=== PATIENT | female | born 1980 | race Caucasian/White ===

== ENCOUNTER 2020-03-29 11:20 | Emergency (ER) | payer OTHER ==
[~2020-03-29] VITALS: Ht 167.6 cm; Wt 110.0 kg
--- NOTE | 2020-03-29 11:40 | PHYS DOC ---
General Adult EDM: Chief Complaint: VAGINAL BLEEDING HPI: HPI: 40 yo @ 6w5d (based on LMP 02/10) presents to the ed with c/o intermittent vaginal spotting for the past week, home test + March 14.. Reports menses type of vaginal bleeding last night with passing large blood clots and abdominal cramping more painful than her typical menses. States her blood flow has decreased and the cramping is improved. In monogamous relationship x4 years. Agrees to GC testing (states "why not?"). No history of anemia or blood transfusions. Does not take any anticoagulation. Past surgical history of lap band, cholecystectomy, L5-S1 spinal fusion and a panniculectomy in August 2019 (in [place], just moved here/hasn't established pcp care). Her children are 10, 12 and 14 yoa. Has monthly menses but hasn't been using any protection. ROS: Denies any associated syncope, dyspnea, abnormal vaginal discharge/odor/itching, dysuria, hematuria, flank pain, dyspareunia, fever or chills, nausea or vomiting. Review of Systems: Review of Systems: Constitutional: Denies fever or chills Eyes: Denies change in visual acuity HENT: Denies nasal congestion or sore throat Respiratory: Denies cough or shortness of breath Cardiovascular: Denies chest pain or edema GI: Denies abdominal pain, nausea, vomiting, bloody stools or diarrhea : Denies dysuria or hematuria Musculoskeletal: Denies back pain or joint pain Integument: Denies rash or diaphoresis Neurologic: Denies headache, focal weakness or sensory changes Endocrine: Denies polyuria or polydipsia Lymphatic: Denies swollen glands Psychiatric: Denies depression or anxiety Physical Exam: PE: Constitutional: Well developed, well nourished, no acute distress, non-toxic appearance. HENT: Normocephalic, atraumatic, Eyes: EOMI, conjunctiva normal, no discharge. Neck: Normal range of motion, supple, Cardiovascular: S1/2 present, regular rhythm Lungs & Thorax: Speaking in full sentences, bilateral equal chest rise, no tachypnea or increased work of breathing Abdomen: soft, no tenderness, Skin: Warm, dry, no erythema, no rash. [] Back: No tenderness, no CVA tenderness. [] Extremities: No tenderness, no cyanosis, no edema Neurologic: Alert and oriented X 3, normal motor function, normal sensory function, no focal deficits noted. [] Psychologic: Affect normal, judgement normal, mood normal. [] Pelvic: Chaperoned by RN, external genitalia normal, normal nonmalodorous discharge, multiparous cervical os closed, no cervical erythema, no CMT or adnexal tenderness, mild/moderate vaginal bleeding in vaginal canal, with mild/not-brisk vaginal bleeding through os with mucous, tolerated exam well EKG: EKG: [] Radiology/Procedures: Radiology/Procedures: IMAGING REPORT Signed PATIENT: MOHIT PARRA LACCOUNT: [id number] : 1980 LOCATION: ER AGE: 40 SEX: F EXAM STATUS: REG ER ORD. PHYSICIAN: MATY COLEMAN DO REASON: vb, 6w5d PROCEDURE: TRANSVAGINAL EXAM: Pelvic sonogram. HISTORY: Bleeding. TECHNIQUE: Transvaginal sonographic imaging of the pelvis was performed. COMPARISON: None. FINDINGS: The uterus measures 11.0 x 5.8 x 5.2 cm. There is a single intrauterine gestational sac with a mean sac diameter of 8.1 mm, corresponding with a gestational age of 5 weeks and 4 days. There is an enlarged yolk sac with slight irregular configuration measuring 6.4 mm. No pole is seen. The ovaries demonstrate normal size and blood flow. There is a 1.2 cm right corpus luteum cyst. There is no pelvic free fluid. There is a small subchorionic hematoma adjacent to the aforementioned gestational sac. IMPRESSION: 1. Small gestational sac with a mean sac diameter corresponding with a gestational age of 5 weeks and 4 days. This contains an abnormally enlarged yolk sac with abnormal configuration. No pole is seen at this early gestational age. The abnormality of the yolk sac is concerning for a nonviable . Short-term follow-up with a sonogram in one to 2 weeks can be performed to assess viability. 2. Small subchorionic hematoma. Electronically signed by: Kathe Flores MD (03/29/2020 1:39 PM) [facility] DICTATED AND SIGNED BY: KATHE FLORES MD DATE: 03/29/20 1337 CC: [facility],NO; [facility] 0 Heart Score: Risk Factors: Risk Factors: DM, Current or recent (<one month) smoker, HTN, HLP, family history of CAD, obesity. Risk Scores: Score 0 - 3: 2.5% MACE over next 6 weeks - Discharge Home Score 4 - 6: 20.3% MACE over next 6 weeks - Admit for Clinical Observation Score 7 - 10: 72.7% MACE over next 6 weeks - Early Invasive Strategies Course & Med Decision Making: Course & Med Decision Making Pertinent Labs and Imaging studies reviewed. (See chart for details) Concern for incomplete miscarriage, doubt threatened (no prior hcg for comparison). No concern for heterotopic on sonogram. Will advise repeat hCG in 48 hours w/obgyn-she may require d&c. Will discharge home with strict ED return precautions for severe or worsening abdominal pain, heavy vaginal bleeding, shortness of breath or fever. Encouraged urgent outpatient follow-up with PMD and POLICE MATRON. Life-threatening processes were considered but are low suspicion at this time, given history, physical exam and ED workup. Pt was educated on all prescription medications and adverse effects. All patient's questions were answered and pt was stable at time of discharge. Life/limb-threatening differential includes but is not limited to, ectopic , septic , infection (endometritis, sti/pid, cystitis, pyelonephritis, Celso's gangrene or necrotizing fasciitis, abscess), ovarian torsion, ruptured hemorrhagic ovarian cyst, endometriosis, ureterolithiasis, t hrombophlebitis, organ prolapse, abdominal aortic aneurysm, mesenteric ischemia, neoplasm, bowel obstruction or surgical abdomen. I spoken with the patient and her caregivers. I explained the patient's condition, diagnoses and treatment plan based on the information available to me at this time. I have answered the patient and her caregiver's questions and addressed any concerns. The patient and her caregivers have a good understanding of patient's diagnosis, condition and treatment plan as can be expected at this point. Vital signs have been stable. Patient's condition is stable and appropriate for discharge from the emergency department. Patient will pursue further outpatient evaluation with primary care physician or other designated or consulting physician as outlined in the discharge instructions. The patient and/or caregivers are agreeable to this plan of care and follow-up instructions have been explained in detail. The patient and/or caregivers have received these instructions in written form and have expressed an understanding of the discharge instructions. The patient and/or caregivers are aware that any significant change of condition or worsening of symptoms should prompt immediate return to this or the closest emergency department or call to 911Maryann Ordoñez Disclaimer: Tiago Disclaimer: This electronic medical record was generated, in whole or in part, using a voice recognition dictation system. Departure Departure: Impression: Primary Impression: Threatened Additional Impression: Need for rhogam due to Rh negative mother Disposition: 01 DC HOME SELF CARE/HOMELESS Condition: STABLE Referrals: PCP,NO (PCP) FOLLOW UP WITH FAMILY MEDICINE: [facility], [facility] [address] [facility] [address] [place] [address], [facility] Instructions: Incomplete Miscarriage, Threatened Miscarriage, Vaginal Bleeding During , First Trimester Additional Instructions: FOLLOW UP WITH POLICE MATRON: IN 48 HOURS (03/31/20) FOR REPEAT HCG LEVEL [facility]-Dr. Stone Address: [address] [place] [address], [facility] [address] [place] [address] EMERGENCY DEPARTMENT GENERAL DISCHARGE INSTRUCTIONS Thank you for coming to [facility] (ED) today and trusting us with you care. We trust that you had a positivie experience in our Emergency Department. If you wish to speak to the department management, you may call the director at [phone]. YOUR FOLLOW UP INSTRUCTIONS ARE FOLLOWS: 1. Do you have a private Doctor? If you do not have a private doctor, please ask for a resource list of physicians or clinics that may be able to assist you with follow up care. 2. The Emergency Physician has interpreted your x-rays. The X-Ray specialist will also review them. If there is a change in the findings, you will be notified in 48 hours when at all possible. 3. A lab test or culture has been done, your results will be reviewed and you will be notified if you need a change in treatment. ADDITIONAL INSTRUCTIONS AND INFORMATION: 1. Your care today has been supervised by a physician who is specially trained in emergency care. Many problems require more than one evaluation for a complete diagnosis and treatment. We recommend that you schedule your follow up appointment as recommended to ensure complete treatment of you illness or injury. If you are unable to obtain follow up care and continue to have a problem, or if your condition worsens, we recommend that you return to the ED. 2. We are not able to safely determine your condition over the phone nor are we able to give sound medical advice over the phone. For these safety reasons, if you call for medical advice we will ask you to come to the ED for further evaluation. 3. If you have any questions regarding these discharge instructions please call the ED at [phone]. SAFETY INFORMATION: In the interest of safety, wellness, and injury prevention; we encourage you to wear your sealbelt, if you smoke; quite smoking, and we encourage family to use a protective helmet for bicycling and other sporting events that present an increased risk for head injury. IF YOUR SYMPTOMS WORSEN OR NEW SYMPTOMS DEVELOP, OR YOU HAVE CONCERNS ABOUT YOUR CONDITION; OR IF YOUR CONDITION WORSENS WHILE YOU ARE WAITING FOR YOUR FOLLOW UP APPOINTMENT; EITHER CONTACT YOUR PRIMARY CARE DOCTOR, THE PHYSICIAN WHOSE NAME AND NUMBER YOU WERE GIVEN, OR RETURN TO THE ED IMMEDIATELY. MATY MONTERO DO Mar 29, 2020 11:40
[2020-03-29 12:12] LABS: BASO # 0.1 x10^3/uL (0.0-0.2); BASO % 1 % (0-3); EOS # 0.1 x10^3/uL (0.0-0.7); EOS % 1 % (0-3); HEMOGLOBIN 13.6 g/dL (12.0-15.5); LYMPH # 1.3 x10^3/uL (1.0-4.8); LYMPH % 16 % (24-48); MEAN CORPUSCULAR HEMOGLOBIN 32 pg (25-35); MEAN CORPUSCULAR HGB CONC 34 g/dL (31-37); MEAN CORPUSCULAR VOLUME 94 fL (79-100); MONO # 0.4 x10^3/uL (0.0-1.1); MONO % 6 % (0-9); NEUT # 6.2 x10^3uL (1.8-7.7); NEUT % 76 % (31-73); PLATELET COUNT 250 x10^3/uL (140-400); RED BLOOD COUNT 4.25 x10^6/uL (3.50-5.40); RED CELL DISTRIBUTION WIDTH 13.9 % (11.5-14.5); WHITE BLOOD COUNT 8.1 x10^3/uL (4.0-11.0)
[2020-03-29 12:15] LABS: CALCIUM 8.9 mg/dL (8.5-10.1); CREATININE 0.7 mg/dL (0.6-1.0); GFR 91.8; POTASSIUM 3.4 mmol/L (3.5-5.1)
[2020-03-29 12:21] LABS: ALBUMIN 3.5 g/dL (3.4-5.0); ALBUMIN/GLOBULIN RATIO 0.9 (1.0-1.7); TOTAL BILIRUBIN 0.5 mg/dL (0.2-1.0); TOTAL PROTEIN 7.4 g/dL (6.4-8.2)
[2020-03-29 13:16] LABS: CLARITY,URINE CLEAR; COLOR,URINE YELLOW
[2020-03-29 13:17] LABS: BACTERIA,URINE 0 /HPF (0-FEW); BILIRUBIN,URINE NEG (NEG); GLUCOSE,URINE NEG (NEG); NITRITE,URINE NEG (NEG); RBC,URINE OCC /HPF (0-2); SQUAMOUS EPITHELIAL CELL,UR FEW /LPF; UROBILINOGEN,URINE 0.2 mg/dL (0.2 mg/dL); WBC,URINE OCC /HPF (0-4)
--- NOTE | 2020-03-29 13:42 | RAD ---
EXAM: Pelvic sonogram. HISTORY: Bleeding. TECHNIQUE: Transvaginal sonographic imaging of the pelvis was performed. COMPARISON: None. FINDINGS: The uterus measures 11.0 x 5.8 x 5.2 cm. There is a single intrauterine gestational sac wit h a mean sac diameter of 8.1 mm, corresponding with a gestational age of 5 weeks and 4 days. There is an enlarged yolk sac with slight irregular configuration measuring 6.4 mm. No pole is seen. Th e ovaries demonstrate normal size and blood flow. There is a 1.2 cm right corpus luteum cyst. There i s no pelvic free fluid. There is a small subchorionic hematoma adjacent to the aforementioned gestati onal sac. IMPRESSION: 1. Small gestational sac with a mean sac diameter corresponding with a gestational age of 5 weeks and 4 days. This contains an abnormally enlarged yolk sac with abnormal configuration. No pole is seen at this early gestational age. The abnormality of the yolk sac is concerning for a nonviable pre gnancy. Short-term follow-up with a sonogram in one to 2 weeks can be performed to assess viability. 2. Small subchorionic hematoma. Electronically signed by: Kathe Fermin MD (03/29/2020 1:39 PM) [facility]
[2020-03-29 14:33] VITALS: BP 140/88
[2020-03-29 14:48] VITALS: BP 121/74
[2020-03-31 19:09] LABS: CHLAMYDIA PROBE Negative (Negative)
[2020-04-02] MEDS ORDERED: CEPH750C9 PO (06:47)
== END 2020-03-29 14:57 | disposition home or self-care (01) ==
LOC: ER 11:20
DX: O20.0 Threatened abortion (principal); Z3A.01 Less than 8 weeks gestation of pregnancy
CPT/HCPCS: 36415; 36430; 76817; 80053; 81001; 81025; 84702; 85025; 85610; 85730; 86850; 86900; 86901; 87491; 87591; 99285; J2791

== ENCOUNTER 2020-04-01 14:12 | Emergency (ER) | payer OTHER ==
[~2020-04-01] VITALS: Ht 167.6 cm; Wt 109.0 kg
[2020-04-01] MEDS ORDERED: MORPHINE SULFATE 4 MG/ML DISP.SYRIN. IV ONE (15:15)
[2020-04-01] MEDS ORDERED: ONDANSETRON PF 4 MG/2 ML VIAL. IVP ONE (15:15)
[2020-04-01] MEDS ORDERED: MORPHINE SULFATE 4 MG/ML DISP.SYRIN. ONE (15:20)
[2020-04-01] MEDS ORDERED: ONDANSETRON PF 4 MG/2 ML VIAL. ONE (15:20)
[2020-04-01 16:14] LABS: BASO # 0.1 x10^3/uL (0.0-0.2); BASO % 1 % (0-3); EOS # 0.2 x10^3/uL (0.0-0.7); EOS % 3 % (0-3); HEMOGLOBIN 13.8 g/dL (12.0-15.5); LYMPH # 1.7 x10^3/uL (1.0-4.8); LYMPH % 19 % (24-48); MEAN CORPUSCULAR HEMOGLOBIN 32 pg (25-35); MEAN CORPUSCULAR HGB CONC 34 g/dL (31-37); MEAN CORPUSCULAR VOLUME 95 fL (79-100); MONO # 0.4 x10^3/uL (0.0-1.1); MONO % 5 % (0-9); NEUT # 6.2 x10^3uL (1.8-7.7); NEUT % 72 % (31-73); PLATELET COUNT 250 x10^3/uL (140-400); RED BLOOD COUNT 4.32 x10^6/uL (3.50-5.40); RED CELL DISTRIBUTION WIDTH 13.6 % (11.5-14.5); WHITE BLOOD COUNT 8.7 x10^3/uL (4.0-11.0)
--- NOTE | 2020-04-01 16:15 | PHYS DOC ---
Past History Past Medical History: Asthma (SEVEN CORONA APRN) Past Surgical History: Cholecystectomy Additional Past Surgical Histo: L5 fusion, lap band (SEVEN CORONA APRN) Alcohol Use: None (SEVEN CORONA APRN) General Adult EDM: Chief Complaint: VAGINAL BLEEDING HPI: HPI: Patient is a 40-year-old female who presents with abdominal cramping and vaginal bleeding. Patient was seen here 2 days ago in the emergency room and diagnosed with miscarriage. Patient states that she is going through 1 pad an hour at home and having lower abdominal cramping, nausea. Patient does not have an ASSEMBLIES AND INSTALLATIONS INSPECTOR to follow-up with at this point because they just moved here. Patient denies fever, pain with urination or urgency. G4, P3. (SEVEN CORONA APRN) Review of Systems: Review of Systems: Constitutional: Denies fever or chills Eyes: Denies change in visual acuity HENT: Denies nasal congestion or sore throat Respiratory: Denies cough or shortness of breath Cardiovascular: Denies chest pain or edema GI: Reports abdominal ramping, nausea. denies vomiting, bloody stools or diarrhea : Denies dysuria Musculoskeletal: Denies back pain or joint pain Integument: Denies rash Neurologic: Denies headache, focal weakness or sensory changes Endocrine: Denies polyuria or polydipsia Lymphatic: Denies swollen glands Psychiatric: Denies depression or anxiety (SEVEN CORONA APRN) Current Medications: Current Meds: Current Medications Medications (Trade) Dose Ordered Sig/Ishaan Start Time Stop Time Status Last Admin Dose Admin Morphine Sulfate (Morphine 4mg Syringe) 4 mg STK-MED ONCE 04/01/20 15:20 04/01/20 15:21 DC Ondansetron HCl (Zofran) 4 mg STK-MED ONCE 04/01/20 15:20 04/01/20 15:21 DC (SEVEN CORONA APRN) Allergies: Allergies: Allergies Coded Allergies Type Severity Reaction Last Updated Verified No Known Drug Allergies 04/01/20 No (SEVEN CORONA APRN) Physical Exam: PE: Constitutional: Well developed, well nourished, no acute distress, non-toxic appearance. [] HENT: Normocephalic, atraumatic, bilateral external ears normal, oropharynx moist, no oral exudates, nose normal. [] Eyes: PERRLA, EOMI, conjunctiva normal, no discharge. [] Neck: Normal range of motion, no tenderness, supple, no stridor. [] Cardiovascular:Heart rate regular rhythm, no murmur [] Lungs & Thorax: Bilateral breath sounds clear to auscultation [] Abdomen: Bowel sounds normal, soft, no tenderness, no masses, no pulsatile masses. [] Skin: Warm, dry, no erythema, no rash. [] Back: No tenderness, no CVA tenderness. [] Extremities: No tenderness, no cyanosis, no clubbing, ROM intact, no edema. [] Neurologic: Alert and oriented X 3, normal motor function, normal sensory function, no focal deficits noted. [] Psychologic: Affect normal, judgement normal, mood normal. [] (SEVEN CORONA APRN) Current Patient Data: Vital Signs: Vital Signs Date Time Temp Pulse Resp B/P (MAP) Pulse Ox O2 Delivery O2 Flow Rate FiO2 04/01/20 15:42 73 18 123/73 (90) 100 Room Air 04/01/20 14:51 96.5 (SEVEN CORONA APRN) EKG: EKG: [] (SEVEN CORONA APRN) Radiology/Procedures: Radiology/Procedures: [] (SEVEN CORONA APRN) Heart Score: Risk Factors: Risk Factors: DM, Current or recent (<one month) smoker, HTN, HLP, family history of CAD, obesity. Risk Scores: Score 0 - 3: 2.5% MACE over next 6 weeks - Discharge Home Score 4 - 6: 20.3% MACE over next 6 weeks - Admit for Clinical Observation Score 7 - 10: 72.7% MACE over next 6 weeks - Early Invasive Strategies (SEVEN CORONA APRN) Course & Med Decision Making: Course & Med Decision Making Pertinent Labs and Imaging studies reviewed. (See chart for details) [] Patient presents with vaginal bleeding after being diagnosed with miscarriage 2 days ago. Patient states that she is going through 1 pad an hour. Patient reports abdominal cramping and nausea. Patient does not have an ASSEMBLIES AND INSTALLATIONS INSPECTOR to follow-up with because they just moved here. CBC drawn to rule out low HGB due to bleeding, ordered Beta HCG to make sure patient dosent need D&C.symptoms have improved with pain medication and Zofran. Beta hCG is trending downward. Will discharge home with Zofran and instructions to follow-up with the PCP. Patient to return to ER with worsening symptoms or concerns. Will give patient referral for ASSEMBLIES AND INSTALLATIONS INSPECTOR (SEVEN CORONA APRN) Tiago Disclaimer: Tiago Disclaimer: This electronic medical record was generated, in whole or in part, using a voice recognition dictation system. (SEVEN CORONA APRN) Attending Co-Sign I oversaw on the above date of service of this patient and discussed the care with the CIVIL DESIGN TECHNICIAN. I agree with the findings, plan of care, and disposition as documented. I did catch fact that patient has UTI that was untreated, I attempted to call patient 04/02/2020 at 0640 hrs. to discuss this. I left voice message to call ER back as patient will need to be treated for UTI in the midst of active miscarriage (LORA ALDRIDGE DO) Departure Departure: Impression: Primary Impression: Abdominal pain Additional Impressions: Nausea UTI (urinary tract infection) Disposition: 01 DC HOME SELF CARE/HOMELESS Condition: GOOD Referrals: PCPXANDER (PCP) [facility] Patient Instructions: Miscarriage, [id number] Additional Instructions: You are seen in the emergency room today for abdominal pain, nausea. Pain medication and nausea medication were given to treat your symptoms. I have attached a referral for ASSEMBLIES AND INSTALLATIONS INSPECTOR. Please follow-up for further concerns. Please return to the emergency room with worsening symptoms. EMERGENCY DEPARTMENT GENERAL DISCHARGE INSTRUCTIONS Thank you for coming to [facility] (ED) today and trusting us with you care. We trust that you had a positivie experience in our Emergency Department. If you wish to speak to the department management, you may call the director at [phone]. YOUR FOLLOW UP INSTRUCTIONS ARE FOLLOWS: 1. Do you have a private Doctor? If you do not have a private doctor, please ask for a resource list of physicians or clinics that may be able to assist you with follow up care. 2. The Emergency Physician has interpreted your x-rays. The X-Ray specialist will also review them. If there is a change in the findings, you will be notified in 48 hours when at all possible. 3. A lab test or culture has been done, your results will be reviewed and you will be notified if you need a change in treatment. ADDITIONAL INSTRUCTIONS AND INFORMATION: 1. Your care today has been supervised by a physician who is specially trained in emergency care. Many problems require more than one evaluation for a complete diagnosis and treatment. We recommend that you schedule your follow up appointment as recommended to ensure complete treatment of you illness or injury. If you are unable to obtain follow up care and continue to have a problem, or if your condition worsens, we recommend that you return to the ED. 2. We are not able to safely determine your condition over the phone nor are we able to give sound medical advice over the phone. For these safety reasons, if you call for medical advice we will ask you to come to the ED for further evaluation. 3. If you have any questions regarding these discharge instructions please call the ED at [phone]. SAFETY INFORMATION: In the interest of safety, wellness, and injury prevention; we encourage you to wear your sealbelt, if you smoke; quite smoking, and we encourage family to use a protective helmet for bicycling and other sporting events that present an increased risk for head injury. IF YOUR SYMPTOMS WORSEN OR NEW SYMPTOMS DEVELOP, OR YOU HAVE CONCERNS ABOUT YOUR CONDITION; OR IF YOUR CONDITION WORSENS WHILE YOU ARE WAITING FOR YOUR FOLLOW UP APPOINTMENT; EITHER CONTACT YOUR PRIMARY CARE DOCTOR, THE PHYSICIAN WHOSE NAME AND NUMBER YOU WERE GIVEN, OR RETURN TO THE ED IMMEDIATELY. Scripts Cephalexin (KEFLEX) 750 Mg Capsule 1 CAP PO BID for UTI for 10 Days, #20 CAP 0 Refills Prov: LORA ALDRIDGE DO 04/02/20 Ondansetron Hcl (ZOFRAN) 4 Mg Tablet 4 MG PO TID PRN PRN for NAUSEA, #9 TAB Prov: SEVEN CORONA APRN 04/01/20 SEVEN CORONA APRN Apr 01, 2020 16:15 LORA ALDRIDGE DO Apr 02, 2020 06:47
[2020-04-01] MEDS ORDERED: ONDA4TAB7 PO (16:47)
[2020-04-01 17:11] LABS: CLARITY,URINE HAZY; COLOR,URINE YELLOW
[2020-04-01 17:12] LABS: BACTERIA,URINE 0 /HPF (0-FEW); BILIRUBIN,URINE NEG (NEG); GLUCOSE,URINE NEG (NEG); RBC,URINE >40 /HPF (0-2); UROBILINOGEN,URINE 0.2 mg/dL (0.2 mg/dL); WBC,URINE OCC /HPF (0-4)
[2020-04-01 17:13] LABS: SQUAMOUS EPITHELIAL CELL,UR OCC /LPF
[2020-04-01 17:29] VITALS: BP 104/70
[2020-04-02] MEDS ORDERED: CEPH750C9 PO (06:47)
[2020-04-02 15:19] LABS: NITRITE,URINE NEG (NEG)
== END 2020-04-01 17:36 | disposition home or self-care (01) ==
LOC: ER 14:12
DX: N39.0 Urinary tract infection, site not specified (principal); R10.30 Lower abdominal pain, unspecified; R11.0 Nausea; J45.909 Unspecified asthma, uncomplicated; Z90.49 Acquired absence of other specified parts of digestive tract
CPT/HCPCS: 36415; 81001; 84702; 85025; 87086; 96374; 96375; 99284; J2270; J2405